=== PATIENT | female | born 1965 | race Caucasian/White ===

== ENCOUNTER → 2018-04-04 | Outpatient (CLI) | payer BC ==
--- NOTE | 2018-04-05 08:31 | CT ---
EXAMINATION TYPE: CT urogram wo/w con DATE OF EXAM: 04/04/2018 COMPARISON: None HISTORY: Right side flank pain and microhematuria. CT DLP: 2442 mGycm CONTRAST: Performed and without and with IV Contrast, patient injected with 100ml mL of Isovue M300. CT Urography was performed with unenhanced followed by enhanced images of the kidneys, ureters and ur inary bladder. Delayed images were obtained. 3d reconstruction was perfromed at a separate work sta tion. FINDINGS: KIDNEYS/BLADDER: No hydronephrosis. Calculus noted in the region of the right UPJ with only borderli ne to mild hydronephrosis suggested. There Is evidence of urothelial thickening. No additional calcul i appreciated. No distinct renal mass. Urinary bladder grossly unremarkable. LUNG BASES-: No visible nodule. No infiltrate. LIVER/GB: No calcified gallstones. No space occupying hepatic lesion. Biliary tree is of normal ca liber. PANCREAS: No inflammation. No distinct mass. SPLEEN: No splenic enlargement. No lesion seen. ADRENALS: No nodule. No thickening. BOWEL: Normal appendix. Normal bowel caliber. No inflammation. GENITAL ORGANS: No gross abnormality. LYMPH NODES: No greater than 1cm abdominal or pelvic lymph nodes are appreciated. AORTA: No significant abnormality. OSSEOUS STRUCTURES: No significant abnormality is seen. OTHER: No significant additional abnormality is seen. IMPRESSION: 1. Partially obstructing calculus right UPJ with borderline to mild hydronephrosis noted. There is ev idence of urothelial thickening.
== END | disposition home or self-care (01) ==
LOC: RADCTMAIN 16:27
PROVIDERS: ATTEND Urology
DX: N13.2 Hydronephrosis with renal and ureteral calculous obstruction (principal); N39.8 Other specified disorders of urinary system; Z88.6 Allergy status to analgesic agent; Z88.7 Allergy status to serum and vaccine
CPT/HCPCS: 74178; 74400; Q9967

== ENCOUNTER → 2018-04-28 | Outpatient (CLI) | payer BC ==
--- NOTE | 2018-04-28 15:27 | XR ---
Abdomen HISTORY: Right ureteral calculus, status post lithotripsy Frontal view of the abdomen submitted correlated to prior abdomen 12/18/2013, CT urogram 04/04/2018 Patient is post lumbosacral fusion L4-S1 with associated laminectomies. There is a calcification in the right paraspinal location likely levels approximately right ureter me asuring 11 mm. Posterior calcifications present within the pelvis. IMPRESSION: Suspect there is a persistent proximal right ureteral calculus.
== END | disposition home or self-care (01) ==
LOC: RADXRMAIN 13:03
PROVIDERS: ATTEND Urology
DX: N20.1 Calculus of ureter (principal)
CPT/HCPCS: 74018

== ENCOUNTER → 2018-06-05 | Outpatient (CLI) | payer BC ==
--- NOTE | 2018-06-05 09:04 | XR ---
EXAMINATION TYPE: XR KUB DATE OF EXAM: 06/05/2018 COMPARISON: 04/28/2018 HISTORY: Pain TECHNIQUE: One view abdominal series FINDINGS: Postsurgical change lower lumbar spine. Arthropathy of the hips. Bowel gas pattern nonspecific. There are significant retained fecal debris overlying the kidneys was limits their assessment. Previously noted lower pole right renal calculus not seen with certainty. No suspicious calculi overlying the le ft renal outline. IMPRESSION: 1. No definite calcification is seen on today's exam. There is some limitation with regard to the rig ht kidney due to extensive overlying bowel content. This may obscure underlying calcifications.
== END ==
LOC: RADXRMAIN 08:05
PROVIDERS: ATTEND Urology
DX: N20.0 Calculus of kidney (principal)
CPT/HCPCS: 74018